=== PATIENT | female | born 1980 | race Caucasian/White ===

== ENCOUNTER 2017-05-04 07:44 | Emergency (ER) | payer SELFPAY ==
--- NOTE | 2017-05-04 08:25 | ER Document Report ---
ED General - General Chief Complaint: Low Back Pain Stated Complaint: BACK PAIN Time Seen by Provider: 05/04/17 08:02 Mode of Arrival: Ambulatory Information source: Patient Notes: Patient is a 36-year-old white female comes to the ER complaining of low back pain with radiation down the right leg. Patient was seen here in this emergency room on April 22 for same presentation. Patient states that she has an a daughter who has cerebral palsy and she did this lifting and pulling on her to get her up. Patient denies any falls or other injuries she has had no loss of urine or stool. She also states that she has been given Robaxin by her neurologist and as well as Flexeril from the ER here. She also received Valium from the ER here. She states she is not getting better and the numbness is radiating down the right leg is relatively new. She denies any other medical problems and states that she is taken nothing for this in the past week with the exception of ibuprofen. TRAVEL OUTSIDE OF THE [place] IN LAST 30 DAYS: No - HPI Patient complains to provider of: Low back pain with radiation down the right leg Onset: Other - 2 weeks ago Onset/Duration: Constant, Persistent Quality of pain: Sharp, Stabbing, Throbbing Severity: Moderate Pain Level: 3 Associated symptoms: None Exacerbated by: Standing, Movement, Walking Relieved by: Denies Similar symptoms previously: Yes Recently seen / treated by doctor: Yes - See above - Related Data Allergies/Adverse Reactions: amoxicillin Allergy (Verified 05/04/17 08:10) Penicillins Allergy (Verified 05/04/17 08:10) Past Medical History - Social History Smoking Status: Current Every Day Smoker Chew tobacco use (# tins/day): No Frequency of alcohol use: None Drug Abuse: None Lives with: Family Family History: Reviewed & Not Pertinent Patient has suicidal ideation: No Patient has homicidal ideation: No - Past Medical History Cardiac Medical History: Reports: None Pulmonary Medical History: Reports: None EENT Medical History: Reports: None Neurological Medical History: Reports: None Renal/ Medical History: Reports: None. Denies: Hx Peritoneal Dialysis Malignancy Medical History: Reports: None GI Medical History: Reports: None Musculoskeltal Medical History: Reports None Skin Medical History: Reports None Psychiatric Medical History: Reports: None Traumatic Medical History: Reports: None Infectious Medical History: Reports: None Past Surgical History: Reports: Hx Section - x3, Hx Tonsillectomy Review of Systems - Review of Systems Constitutional: No symptoms reported EENT: No symptoms reported Cardiovascular: No symptoms reported Respiratory: No symptoms reported Gastrointestinal: No symptoms reported Genitourinary: No symptoms reported Female Genitourinary: No symptoms reported Musculoskeletal: Back pain, Muscle pain Skin: No symptoms reported Hematologic/Lymphatic: No symptoms reported Neurological/Psychological: No symptoms reported -: Yes All other systems reviewed and negative Physical Exam - Vital signs Vitals: Temp Pulse BP Pulse Ox 97.5 F 72 144/97 H 94 05/04/17 07:49 05/04/17 07:49 05/04/17 07:49 05/04/17 07:49 - General General appearance: Anxious, Other - Apparent discomfort/pain In distress: Moderate - Respiratory Respiratory status: No respiratory distress Breath sounds: Normal. No: Decreased air movement, Nonproductive cough, Productive cough, Rales, Rhonchi, Stridor, Wheezing, Other - Cardiovascular Rhythm: Regular Heart sounds: Normal auscultation Murmur: No - Abdominal Inspection: Normal Distension: No distension Bowel sounds: Normal Tenderness: Nontender Organomegaly: No organomegaly - Back Back: Tender, Vertebra tenderness, Other - Examination patient's back shows reproducible tenderness around L4. Patient does display some paravertebral spasms that are noted. She also has increased pain around the lower portion of the thoracic column which is tender to palpation although has full range of motion. Further evaluation shows patient has tenderness into the right buttocks and down the right posterior leg to the knee. This is reproducible with any type of a deep palpation and tenderness is exquisite on that deep palpation. Patient displays good DTRs in the lower extremities she has good dorsalis pedal pulses as well as good popliteal pulses and she has full extension of the legs while sitting. She has good strength to resistance in the lower extremities straight leg raises are negative on the left but slightly positive on the right to about 25.. No: Normal, Nontender, Deformity/step-off , CVA tenderness, Scars, Scoliosis, Wounds - Neurological Neuro grossly intact: Yes Cognition: Normal Orientation: AAOx4 Jackson Coma Scale Eye Opening: Spontaneous Jackson Coma Scale Verbal: Oriented Jackson Coma Scale Motor: Obeys Commands Aden Coma Scale Total: 15 Speech: Normal - Skin Skin Temperature: Warm Skin Moisture: Dry Skin Color: Normal, [place] Course - Vital Signs Vital signs: Temp Pulse Resp BP Pulse Ox 97.5 F 72 144/97 H 94 05/04/17 07:49 05/04/17 07:49 05/04/17 07:49 05/04/17 07:49 - Diagnostic Test Radiology reviewed: Reports reviewed - Radiology reports of the thoracic and lumbar spine show no acute findings only chronic changes. - Transfer of Care Notes: 05/04/17 11:10 It was brought to my attention by the nurse taking care of patient that patient was checked in under a different name than last time. We had to go back and search for her chart from the last visit on April 22 and I believe the name was Kiran. It explained about patient receiving Valium and Flexeril from this facility only 8 tablets of Valium at 5 mg and only 15 Flexeril. Patient openly admits that she had Relafen from her neurologist and primary care provider afterwards. Patient on exam also appeared somewhat inebriated she had difficulty finding her words and talking when asked if she had taken anything at all narcotic why she replied no. Urine drug screen was positive for opiates and cocaine. I did not readdress this issue at this time. I went back into address the issue and patient was in the middle of walking across the room and sitting down and I observed her normally walking until I opened the door and then she dropped to one side and stating the pain was coming back. I gave her Toradol shot and she responded well with decrease in discomfort and pain of some sending her home on the steroids and tramadol for pain. Patient does have a primary care physician and a neurologist she will follow up with. 05/04/17 11:13 Discharge - Discharge Condition: Good Disposition: HOME, SELF-CARE Instructions: Ice Packs ([facility]), Oral Narcotic Medication ([facility]), Low Back Pain ( [facility]), Muscle Strain ([facility]) Additional Instructions: Home and rest. As we discussed treating you with anti-inflammatory type medications to help reduce the swelling of any discs if by chance you have some type of a herniation. Also as we discussed that the pain continues he will need to follow-up with your primary care provider and possibly have an MRI of the area to see if there is anything that can be seen causing this discomfort. Also no lifting or pulling until your follow-up with your primary care provider continue with your muscle relaxers given to by her neurologist and by her primary care provider return here for any concerns or problems. Prescriptions: Methylprednisolone [Medrol Dosepack (4 mg/Tab) 21 Tab/Dosepak] 4 mg PO ASDIR PRN #21 tab.ds.pk PRN Reason: Tramadol HCl 50 mg PO TID #20 tablet
[2017-05-04 08:52] LABS: APPEARANCE,URINE CLEAR; BILIRUBIN,URINE NEGATIVE (NEGATIVE); GLUCOSE, URINE NEGATIVE (NEGATIVE); KETONES,URINE NEGATIVE (NEGATIVE); LEUKOCYTE ESTERASE,URINE NEGATIVE (NEGATIVE); NITRITE,URINE NEGATIVE (NEGATIVE); PROTEIN,URINE NEGATIVE (NEGATIVE); URINE SPECIFIC GRAVITY 1.004; UROBILINOGEN,URINE NEGATIVE mg/dL (<2.0)
[2017-05-04 09:09] LABS: URINE BARBITURATES SCREEN NEGATIVE; URINE METHADONE SCREEN NEGATIVE; URINE OPIATES LOW UNCONFIRMED POSITIVE; URINE PHENCYCLIDINE SCREEN NEGATIVE
--- NOTE | 2017-05-04 10:04 | RADIOLOGY REPORT (SQ) ---
EXAM DESCRIPTION: T SPINE AP/LAT COMPLETED DATE/TIME: 05/04/2017 9:24 am REASON FOR STUDY: Back pain COMPARISON: Lumbar spine films same date NUMBER OF VIEWS: Two views. TECHNIQUE: AP and lateral radiographic images acquired of the thoracic spine. LIMITATIONS: None. FINDINGS: MINERALIZATION: Normal. ALIGNMENT: Mild convex rightward thoracic curvature, 12 from the top of T5 to the bottom of T8. VERTEBRAE: No fracture or bone lesion. Maintained height, normal segmentation. DISCS: No significant loss of height or significant narrowing. No large osteophytes. HARDWARE: None in the spine. MEDIASTINUM AND SOFT TISSUES: Normal heart size and aortic contour. No soft tissue abnormality. VISUALIZED LUNG DRISCOLL: Clear. OTHER: No other significant finding. IMPRESSION: NO SIGNIFICANT RADIOGRAPHIC FINDING IN THE THORACIC SPINE. TECHNICAL DOCUMENTATION: JOB ID: [id number] [employer]- All Rights Reserved
--- NOTE | 2017-05-04 10:06 | RADIOLOGY REPORT (SQ) ---
EXAM DESCRIPTION: L SPINE WHOLE COMPLETED DATE/TIME: 05/04/2017 9:24 am REASON FOR STUDY: Back pain COMPARISON: Thoracic spine films same date NUMBER OF VIEWS: Five views including obliques. TECHNIQUE: AP, lateral, oblique, and sacral radiographic images acquired of the lumbar spine. LIMITATIONS: None. FINDINGS: MINERALIZATION: Normal. SEGMENTATION: Normal. No transitional anatomy. ALIGNMENT: Normal. VERTEBRAE: Maintained height. No fracture or worrisome bone lesion. DISCS: Disc space narrowing with mild anterior osteophyte formation at L1-2, L2-3, L4-5, and L5-S1. POSTERIOR ELEMENTS: Pedicles and facets are intact. No pars defect or posterior arch defects. Mild bilateral facet arthropathy at L5-S1 HARDWARE: None in the spine. PARASPINAL SOFT TISSUES: Normal. PELVIS: Intact as visualized. No fractures or worrisome bone lesions. Mild bilateral SI joint sclero sis. OTHER: No other significant finding. IMPRESSION: Diffuse lumbar degenerative disc changes. TECHNICAL DOCUMENTATION: JOB ID: [id number] [employer]- All Rights Reserved
[2017-05-04] MEDS ORDERED: KETOROLAC TROMETHAMINE 60 MG/2 ML SDV IM ONE (10:31)
[2017-05-04 11:20] VITALS: BP 101/36
== END 2017-05-04 11:20 | disposition home or self-care (01) ==
LOC: ER 07:44
DX: M54.5 Low back pain (principal); R20.0 Anesthesia of skin
CPT/HCPCS: 99283; 81025; 81001; 80307; 72110; 72070; J1885